=== PATIENT | male | born 1960 | race Hispanic/Latino ===

== ENCOUNTER 2022-10-03 07:20 | Day surgery (SDC) | payer BC ==
[2022-09-30 12:24] LABS: BASOPHILS % (AUTO) 0.4 % (0.0-5.0); HEMATOCRIT 44.8 % (42-54); LYMPHOCYTES % (AUTO) 23.7 % (21.0-51.0); MEAN CORPUSCULAR HEMOGLOBIN 28.1 pg (27.0-33.0); MEAN CORPUSCULAR HGB CONC 32.8 g/dL (32.0-36.0); MEAN CORPUSCULAR VOLUME 85.5 fL (79-99); MONOCYTES % (AUTO) 10.3 % (3.0-13.0); PLATELET COUNT (AUTO) 253 K/uL (130-400); RED BLOOD CELL COUNT(AUTO) 5.24 MIL/uL (4.50-6.20); RED CELL DISTRIBUTION WIDTH 14.6 % (11.0-15.5); WHITE BLOOD COUNT (AUTO) 8.2 K/uL (4.8-10.8)
[2022-09-30 12:39] LABS: ALBUMIN 4.3 g/dL (3.5-5.0); CARBON DIOXIDE 33 mmol/L (21-32); CHLORIDE 100 mmol/L (101-111); CREATININE 0.9 mg/dL (0.5-1.5); GLOMERULAR FILTR. RATE CALC 91 mL/min (>60); GLUCOSE,RANDOM 97 mg/dL (70-105); SODIUM SERUM 140 mmol/L (136-145); UREA NITROGEN, BLOOD 14 mg/dL (7-18)
[2022-09-30 12:49] LABS: CRP QUANTITATIVE < 2.00 mg/L (0.00-9.0)
[2022-09-30 14:23] VITALS: BP 146/84
[~2022-10-03] VITALS: Ht 167.6 cm; Wt 80.7 kg
[2022-10-03] VITALS (16 sets, daily range): BP systolic 109–140; BP diastolic 66–83
[2022-10-03] MEDS: CEFAZOLIN SODIUM 1 GM VIAL IVPB SCH ×2 (06:00→13:45)
[~2022-10-03 07:20] MED LIST: ACET-2743 PO; LISI1TAB51 PO; METH-811 PO; MULT-1289 PO; OMEP40CA21 PO; ROSU5TAB12 PO
[2022-10-03] MEDS ORDERED: LACTATED RINGERS 1000ML 1,000 ML IV ONE (07:46)
[2022-10-03] MEDS ORDERED: BUPIVACAINE/PF 0.25% 30ML VIAL IJ ONE ×2 (08:35→12:05)
[2022-10-03] MEDS ORDERED: PROPOFOL 10 MG/ML 20ML VIAL IV ONE (13:34)
[2022-10-03] MEDS ORDERED: MIDAZOLAM HCL 1 MG/ML 2ML VIAL ONE (13:34)
[2022-10-03] MEDS ORDERED: SUCCINYLCHOLINE 200MG/10ML SYR ONE (13:34)
[2022-10-03] MEDS ORDERED: GLYCOPYRROLATE 1 MG/5 ML SYRINGE ONE (13:34)
[2022-10-03] MEDS ORDERED: NEOSTIGMINE 5MG/5ML SYR IV ONE (13:34)
[2022-10-03] MEDS ORDERED: ROCURONIUM 10MG/1ML SYR 10 MG/ML ML ONE (13:34)
[2022-10-03] MEDS ORDERED: LIDOCAINE PF 100MG/5ML (2%) SYRINGE 5ML ONE (13:34)
[2022-10-03] MEDS ORDERED: FENTANYL CITRATE PF 50 MCG/1 ML 2ML VIAL ONE (13:35)
[2022-10-03] MEDS ORDERED: ONDANSETRON 4MG INJ ONE ×2 (13:48→14:00)
[2022-10-03] MEDS ORDERED: TRAM100T40 PO (14:44)
== END 2022-10-03 16:25 | disposition home or self-care (01) ==
LOC: DAH 07:20
PROVIDERS: ATTEND Student in an Organized Health Care Education/Training Program
DX: S83.232A Complex tear of medial meniscus, current injury, left knee, initial encounter (principal); Z20.822 Contact with and (suspected) exposure to COVID-19; M94.262 Chondromalacia, left knee; M17.12 Unilateral primary osteoarthritis, left knee; I10 Essential (primary) hypertension; E78.5 Hyperlipidemia, unspecified; Z87.891 Personal history of nicotine dependence; X58.XXXA Exposure to other specified factors, initial encounter; Y93.89 Activity, other specified; Y92.89 Other specified places as the place of occurrence of the external cause
CPT/HCPCS: 82040; 80048; 85025; 84134; 86140; 87426; 36415; 29881; A4663; J7120; J3010; J0690; J0330; J3490 ×3; J2710; J2001; J2250; J2704; J2405; A6223; A4649; A5120; A4215; A4223; A4222; A4221; A6450